=== PATIENT | female | born 1950 | race Caucasian/White ===

== ENCOUNTER 2019-02-26 08:46 | Emergency (ER) | payer MEDICARE, SELFPAY ==
[2019-02-26 09:03] VITALS: BP 147/74; PULSE 106; RESP 18; TEMP 36.7; O2SAT 97
[2019-02-26 09:04] VITALS: BMI 25.0
--- NOTE | 2019-02-26 09:08 | W.ED.FALL ---
HPI - Fall General: Chief Complaint: Fall Stated Complaint: fall/right hand pain Time Seen by Provider: 02/26/19 09:08 Source: patient Mode of arrival: ambulatory Limitations: no limitations History of Present Illness: HPI Narrative: pt states she was carrying in groceries when she tripped and fell onto her R side; complains of pain from shoulder down to my hand and R rib pain-worse with deep inhalation; no SOB; did not strike head, no LOC, no neck/back pain; has been ambulating w/o difficulty since the fall complaint: fall Onset (ago): day(s) (yesterday) Fall from: standing Fall witnessed: no Place fall occurred: home Loss of consciousness: None Prolonged down time: no Symptoms prior to fall: none Context: tripped/slipped Location of injury: chest Location of injury - extremities: Right: shoulder, arm, forearm and hand Associated symptoms-after fall: Reports no associated symptoms and chest pain (R rib pain); Denies abdominal pain, difficulty walking, headache(s), lightheadedness or neck pain Review of Systems Const: Denies: fever or chills Eyes: Denies: change in vision or blurry vision Card: Reports: chest pain (R rib pain); Denies: palpitations, irregular heart rhythm, lightheadedness, syncope, shortness of breath on exertion or shortness of breath when lying down Resp: Denies: shortness of breath, productive cough or pain on inspiration GI: Denies: abdominal pain, nausea, vomiting, heartburn/indigestion or diarrhea Musc: Reports: extremity pain (R arm/hand; no elbow pain) and joint pain (R shoulder, wrist); Denies: neck pain or back pain Skin/Breast: Denies: rash Neuro: Denies: headache, numbness in extremities, weakness in extremities, changes in sensation, lack of coordination, difficulty walking, frequent falls or dizziness PFSH ED PFSH: Statuses (acute, chronic, etc) shown below reflect problem list status as previously entered and may not be historically accurate Social History Smoking and tobacco status: never smoked Physical Exam Const: COMMON NORMALS: no apparent distress, oriented x3 and alert GENERAL APPEARANCE: cooperative HENMT: COMMON NORMALS: normocephalic, head/scalp atraumatic, external ears normal, EAC's normal, TM's normal bilaterally and external nose normal HEAD & SCALP: normal to inspection, normocephalic and atraumatic FACE & SINUS: normal facial exam NOSE: external nose normal EXTERNAL EAR: Yes external ears normal EXTERNAL AUDITORY CANAL: EAC's normal TYMPANIC MEMBRANE: TM's normal bilaterally MOUTH: oral and palatal mucosa normal THROAT: posterior oropharynx normal, tonsils normal and uvula midline Eye: COMMON NORMALS: PERRL and EOMs intact bilaterally PUPIL: Yes PERRL Neck/C-Spine: COMMON NORMALS: full ROM, no lymphadenopathy, supple and no meningeal signs Chest: CHEST: Yes localized rib tenderness with anteroposterior compression (R lateral mid ribs) Resp: COMMON NORMALS: normal respiratory effort, no retractions, no use of accessory muscles and clear to auscultation bilaterally AUSCULTATION: clear to auscultation bilaterally Cardio: COMMON NORMALS: regular rate and regular rhythm RATE: regular rate RHYTHM: regular rhythm GI: COMMON NORMALS: normal to inspection, nondistended, normoactive bowel sounds, soft to palpation, non-tender, no hepatosplenomegaly and no masses PALPATION: Yes soft and Yes no hepatosplenomegaly Back/Pelvis: COMMON NORMALS: thoracic and lumbar spine normal to inspection Extremity: RIGHT UPPER EXTREMITY: Yes shoulder joint (TTP; no dec ROM), Yes upper arm (TTP; no swelling/deformity noted), No elbow joint, Yes lower arm (TTP; mild ecchymosis noted dorsally ), Yes wrist (TTP; swelling noted; NV intact) and Yes hand & digits (swelling/ecchymosis on dorsum of hand; full ROM of digits ) Neuro: COMMON NORMALS: oriented x3 SENSORIUM/ORIENTATION: Yes alert MENINGEAL SIGNS: Yes no meningeal signs SENSORY EXAM: Yes extremities (normal ) Course Vital Signs: Vital signs: Vital Signs Temperature 98.0 F 02/26/19 09:03 Pulse Rate 98 02/26/19 10:30 Respiratory Rate 16 02/26/19 10:30 Blood Pressure 143/76 02/26/19 10:30 Pulse Oximetry 94 02/26/19 10:30 MDM - Fall Imaging Data^: R shoulder : Radiologist's impression: [address] [address] XRay Report Signed Patient: Loulou Castle MR#: [id number] : 1950 Acct:[id number] Age/Sex: 68 / F ADM Date: 02/26/19 Loc: ER Attending Dr: Ordering Physician: Leila Evans Date of Service: 02/26/19 Procedure(s): XR shoulder RT min 2V* [id number] Accession Number(s): [id number] cc: Leila Evans PROCEDURE INFORMATION: Exam: XR Right Shoulder Exam date and time: 02/26/2019 9:14 AM Age: 68 years old Clinical indication: Injury or trauma; Fall; Initial encounter; Blunt trauma (contusions or hematomas; Shoulder; Right TECHNIQUE: Imaging protocol: XR Right shoulder. Views: 2 or more views. COMPARISON: No relevant prior studies available. FINDINGS: Bones/joints: Visualized portions of the clavicle normal. Mild degenerative changes of the acromioclavicular joint. Glenohumeral joint normal Scapula normal Visualized ribs and visualized pulmonary parenchyma normal Coracoid process normal Soft tissues: Normal. XR/XR shoulder RT min 2V* 77000 IMPRESSION: Mild degenerative changes of the acromioclavicular joint. Dictated By: Dmitry Batista MD 02/26/19 0952 Signed By: Dmitry Batista MD 02/26/19 0954 R humerus: Radiologist's impression: [address] [address] XRay Report Signed Patient: Loulou Castle MR#: [id number] : 1950 Acct:[id number] Age/Sex: 68 / F ADM Date: 02/26/19 Loc: ER Attending Dr: Ordering Physician: Leila Evans Date of Service: 02/26/19 Procedure(s): [place] [address] Accession Number(s): [id number] cc: Leila Evans PROCEDURE INFORMATION: Exam: XR Right Humerus Exam date and time: 02/26/2019 9:14 AM Age: 68 years old Clinical indication: Injury or trauma; Fall; Initial encounter; Blunt trauma (contusions or hematomas; Arm, upper; Right TECHNIQUE: Imaging protocol: XR Right humerus Views: 2 or more views. COMPARISON: No relevant prior studies available. FINDINGS: Bones/joints: The humerus is grossly normal. Visualized portions of the forearm and the osseous structures about the elbow are grossly normal without joint effusion or fracture. The osseous structures constituting the shoulder girdle are also unremarkable. No periosteal response. No erosive changes. No focal osteopenia. No endosteal thinning. degenerative changes of the acromioclavicular joint. Soft tissues: Normal. XR/[place] [address] IMPRESSION: No fracture. Dictated By: Dmitry Batista MD 02/26/19 0954 Signed By: Dmitry Batista MD 02/26/19 0955 R forearm: Radiologist's impression: [address] [place] [address] XRay Report Signed Patient: Loulou Castle MR#: [id number] : 1950 Acct:[id number] Age/Sex: 68 / F ADM Date: 02/26/19 Loc: ER Attending Dr: Ordering Physician: Leila Evans Date of Service: 02/26/19 Procedure(s): XR forearm RT 2V 56742 Accession Number(s): [id number] cc: Leila Evans PROCEDURE INFORMATION: Exam: XR Right Forearm Exam date and time: 02/26/2019 9:14 AM Age: 68 years old Clinical indication: Injury or trauma; Fall; Initial encounter; Blunt trauma (contusions or hematomas; Arm, lower; Right TECHNIQUE: Imaging protocol: XR Right forearm. Views: 2 views. COMPARISON: CR ([facility], ) 02/26/2019 9:19 AM FINDINGS: Bones/joints: The osseous structures of the forearm are unremarkable. The distal ulna are unremarkable. degenerative changes scaphoid trapezium and trapezoid articulations. Severe degenerative changes first carpometacarpal joint. Subtle irregularity of the distal radius most conspicuous dorsally. Consider dedicated views of the wrist. Soft tissues: Normal. XR/XR forearm RT 2V 21771 IMPRESSION: Subtle irregularity of the distal radius most conspicuous dorsally. Consider dedicated views of the wrist. Degenerative changes as described above. Dictated By: Dmitry Batista MD 02/26/1955 Signed By: Dmitry Batista MD 02/26/19 0957 R wrist: Radiologist's impression: [address] [place] [address] XRay Report Signed Patient: Loulou Castle MR#: [id number] : 1950 Acct:[id number] Age/Sex: 68 / F ADM Date: 02/26/19 Loc: ER Attending Dr: Ordering Physician: Leila Evans Date of Service: 02/26/19 Procedure(s): XR wrist RT min 3V* 91664 Accession Number(s): [id number] cc: Leila Evans PROCEDURE INFORMATION: Exam: XR Right Wrist Exam date and time: 02/26/2019 9:14 AM Age: 68 years old Clinical indication: Injury or trauma; Fall; Initial encounter; Blunt trauma (contusions or hematomas; Wrist; Right TECHNIQUE: Imaging protocol: XR Right wrist. Views: 3 or more views. COMPARISON: No relevant prior studies available. FINDINGS: Bones/joints: Mild degenerative changes distal radial ulnar joint Chronic ulnar styloid process fracture Severe degenerative changes first carpometacarpal joint. degenerative changes scaphoid trapezium and trapezoid articulations. Mildly comminuted fracture involving the proximal aspect of the fifth metacarpal which appears to extend to the articular surface. Soft tissues: Normal. XR/XR wrist RT min 3V* 41976 IMPRESSION: Mildly comminuted fracture involving the proximal aspect of the fifth metacarpal which appears to extend to the articular surface. Irregularity of the distal radius is believed to be degenerative in nature. The pronator quadratus muscle appears unremarkable. Consider CT if indicated. Dictated By: Dmitry Batista MD 02/26/1957 Signed By: Dmitry Batista MD 02/26/19 0959 R hand: Radiologist's impression: [address] [place] [address] XRay Report Signed Patient: Loulou Castle MR#: [id number] : 1950 Acct:[id number] Age/Sex: 68 / F ADM Date: 02/26/19 Loc: ER Attending Dr: Ordering Physician: Leila Evans Date of Service: 02/26/19 Procedure(s): XR hand RT min 3V* 16941 Accession Number(s): [id number] cc: Leila Evans PROCEDURE INFORMATION: Exam: XR Right Hand Exam date and time: 02/26/2019 9:14 AM Age: 68 years old Clinical indication: Injury or trauma; Fall; Initial encounter; Blunt trauma (contusions or hematomas; Hand; Right TECHNIQUE: Imaging protocol: XR Right hand. Views: 3 or more views. COMPARISON: No relevant prior studies available. FINDINGS: Bones/joints: Degenerative changes are present in the distal interphalangeal joints and to a lesser degree the more proximal interphalangeal articulations. Mildly displaced fracture involving the proximal aspect of the fifth metacarpal extending to the articular surface. degenerative changes scaphoid trapezium and trapezoid articulations. degenerative changes first carpometacarpal joint. Soft tissues: Normal. XR/XR hand RT min 3V* 70226 IMPRESSION: Mildly displaced fracture involving the proximal aspect of the fifth metacarpal extending to the articular surface. Degenerative changes. Dictated By: Dmitry Batista MD 02/26/19 0959 Signed By: Dmitry Batista MD 02/26/19 1000 R ribs/CXR: Radiologist's impression: [place] [address] XRay Report Signed Patient: Loulou Castle MR#: [id number] : 1950 Acct:[id number] Age/Sex: 68 / F ADM Date: 02/26/19 Loc: ER Attending Dr: Ordering Physician: Leila Evans Date of Service: 02/26/19 Procedure(s): XR ribs RT mn 3V w CXR1V 85535 Accession Number(s): [id number] cc: Leila Evans PROCEDURE INFORMATION: Exam: XR Right Ribs with PA Chest, 3 Views Exam date and time: 02/26/2019 10:02 AM Age: 68 years old Clinical indication: Injury or trauma; Fall; Initial encounter; Chest wall and rib area; Blunt trauma (contusions or hematomas); Injury date: 02/26/19; Additional info: Fall/pain TECHNIQUE: Imaging protocol: XR Right ribs 3 views with PA chest. COMPARISON: CR Chest 2 views* 45692 11/07/2017 11:51 AM FINDINGS: Lungs: Unremarkable. No consolidation. Pleural space: Pleural thickening right hemithorax laterally. A rib fracture is not clearly delineated. Heart/Mediastinum: Cardiomegaly Bones/joints: See Pleural Space Finding. XR/XR ribs RT mn 3V w CXR1V 15947 IMPRESSION: Pleural thickening right hemithorax laterally. A rib fracture is not clearly delineated. Dictated By: Dmitry Batista MD 02/26/19 1013 Signed By: Dmitry Batista MD 02/26/19 1015 Discharge Plan Discharge Patient Disposition: Home, Self-Care Clinical Impression: Fall Qualifiers: Encounter type: initial encounter Qualified Code(s): W19.XXXA - Unspecified fall, initial encounter Fracture of metacarpal Qualifiers: Encounter type: initial encounter Metacarpal bone: fifth Fracture type: closed Metacarpal location: base Fracture alignment: nondisplaced Laterality: right Qualified Code(s): S62.346A - Nondisplaced fracture of base of fifth metacarpal bone, right hand, initial encounter for closed fracture Condition: Stable Prescriptions: New hydrocodone-acetaminophen 5-325 mg tablet 1 tab PO Q6H PRN (Reason: pain) Qty: 14 RF: 0 Discharge Orders: Discharge Order (Routine); Ordered 02/26/19 Ordered By: Leila Evans Referrals: Amanda Chaudhari DO [Family Provider] - Discharge Diet: Usual diet Discharge Activity: limit use of right upper extremity Activity Restrictions/Additional Instructions: Follow up with orthopedics as directed. Case management will contact you with date/time of your appointment. Stand Alone Forms: Work/Release Restrictions Discharge Date/Time: 02/26/19 10:37 Coding Level of Care Code ED Rn Physician Office for [facility] Ackerman Exam Problem Focused
--- NOTE | 2019-02-26 09:13 | XRR_ITS ---
PROCEDURE INFORMATION: Exam: XR Right Shoulder Exam date and time: 02/26/2019 9:14 AM Age: 68 years old Clinical indication: Injury or trauma; Fall; Initial encounter; Blunt trauma (contusions or hematomas; Shoulder; Right TECHNIQUE: Imaging protocol: XR Right shoulder. Views: 2 or more views. COMPARISON: No relevant prior studies available. FINDINGS: Bones/joints: Visualized portions of the clavicle normal. Mild degenerative changes of the acromioclavicular joint. Glenohumeral joint normal Scapula normal Visualized ribs and visualized pulmonary parenchyma normal Coracoid process normal Soft tissues: Normal. XR/XR shoulder RT min 2V* [id number] IMPRESSION: Mild degenerative changes of the acromioclavicular joint.
--- NOTE | 2019-02-26 09:13 | XRR_ITS ---
PROCEDURE INFORMATION: Exam: XR Right Forearm Exam date and time: 02/26/2019 9:14 AM Age: 68 years old Clinical indication: Injury or trauma; Fall; Initial encounter; Blunt trauma (contusions or hematomas; Arm, lower; Right TECHNIQUE: Imaging protocol: XR Right forearm. Views: 2 views. COMPARISON: CR ([facility], ) 02/26/2019 9:19 AM FINDINGS: Bones/joints: The osseous structures of the forearm are unremarkable. The distal ulna are unremarkable. degenerative changes scaphoid trapezium and trapezoid articulations. Severe degenerative changes first carpometacarpal joint. Subtle irregularity of the distal radius most conspicuous dorsally. Consider dedicated views of the wrist. Soft tissues: Normal. XR/XR forearm RT 2V [id number] IMPRESSION: Subtle irregularity of the distal radius most conspicuous dorsally. Consider dedicated views of the wrist. Degenerative changes as described above.
--- NOTE | 2019-02-26 09:13 | XRR_ITS ---
PROCEDURE INFORMATION: Exam: XR Right Ribs with PA Chest, 3 Views Exam date and time: 02/26/2019 10:02 AM Age: 68 years old Clinical indication: Injury or trauma; Fall; Initial encounter; Chest wall and rib area; Blunt trauma (contusions or hematomas); Injury date: 02/26/19; Additional info: Fall/pain TECHNIQUE: Imaging protocol: XR Right ribs 3 views with PA chest. COMPARISON: CR Chest 2 views* [id number] 11/07/2017 11:51 AM FINDINGS: Lungs: Unremarkable. No consolidation. Pleural space: Pleural thickening right hemithorax laterally. A rib fracture is not clearly delineated. Heart/Mediastinum: Cardiomegaly Bones/joints: See Pleural Space Finding. XR/XR ribs RT mn 3V w CXR1V 35628 IMPRESSION: Pleural thickening right hemithorax laterally. A rib fracture is not clearly delineated.
--- NOTE | 2019-02-26 09:13 | XRR_ITS ---
PROCEDURE INFORMATION: Exam: XR Right Humerus Exam date and time: 02/26/2019 9:14 AM Age: 68 years old Clinical indication: Injury or trauma; Fall; Initial encounter; Blunt trauma (contusions or hematomas; Arm, upper; Right TECHNIQUE: Imaging protocol: XR Right humerus Views: 2 or more views. COMPARISON: No relevant prior studies available. FINDINGS: Bones/joints: The humerus is grossly normal. Visualized portions of the forearm and the osseous structures about the elbow are grossly normal without joint effusion or fracture. The osseous structures constituting the shoulder girdle are also unremarkable. No periosteal response. No erosive changes. No focal osteopenia. No endosteal thinning. degenerative changes of the acromioclavicular joint. Soft tissues: Normal. XR/[place] [id number] IMPRESSION: No fracture.
--- NOTE | 2019-02-26 09:13 | XRR_ITS ---
PROCEDURE INFORMATION: Exam: XR Right Hand Exam date and time: 02/26/2019 9:14 AM Age: 68 years old Clinical indication: Injury or trauma; Fall; Initial encounter; Blunt trauma (contusions or hematomas; Hand; Right TECHNIQUE: Imaging protocol: XR Right hand. Views: 3 or more views. COMPARISON: No relevant prior studies available. FINDINGS: Bones/joints: Degenerative changes are present in the distal interphalangeal joints and to a lesser degree the more proximal interphalangeal articulations. Mildly displaced fracture involving the proximal aspect of the fifth metacarpal extending to the articular surface. degenerative changes scaphoid trapezium and trapezoid articulations. degenerative changes first carpometacarpal joint. Soft tissues: Normal. XR/XR hand RT min 3V* [id number] IMPRESSION: Mildly displaced fracture involving the proximal aspect of the fifth metacarpal extending to the articular surface. Degenerative changes.
--- NOTE | 2019-02-26 09:13 | XRR_ITS ---
PROCEDURE INFORMATION: Exam: XR Right Wrist Exam date and time: 02/26/2019 9:14 AM Age: 68 years old Clinical indication: Injury or trauma; Fall; Initial encounter; Blunt trauma (contusions or hematomas; Wrist; Right TECHNIQUE: Imaging protocol: XR Right wrist. Views: 3 or more views. COMPARISON: No relevant prior studies available. FINDINGS: Bones/joints: Mild degenerative changes distal radial ulnar joint Chronic ulnar styloid process fracture Severe degenerative changes first carpometacarpal joint. degenerative changes scaphoid trapezium and trapezoid articulations. Mildly comminuted fracture involving the proximal aspect of the fifth metacarpal which appears to extend to the articular surface. Soft tissues: Normal. XR/XR wrist RT min 3V* [id number] IMPRESSION: Mildly comminuted fracture involving the proximal aspect of the fifth metacarpal which appears to extend to the articular surface. Irregularity of the distal radius is believed to be degenerative in nature. The pronator quadratus muscle appears unremarkable. Consider CT if indicated.
--- NOTE | 2019-02-26 09:26 | PC.NURSE ---
Patient states she had a fall that occurred yesterday outside of her apartment, patient verbalized that she fell up her stairs. Bruising and swelling noted to the right hand, with decreased ability to move fingers with normal range of motion. Patient also c/o pain in the right shoulder and discomfort on the right lateral ribs just near the breast area.
[2019-02-26 09:51] VITALS: RESP 18
[2019-02-26] MEDS: morphine 4 mg/mL SDV 1 mL IM (09:51)
[2019-02-26 09:54] VITALS: BP 159/95; PULSE 107; RESP 18; O2SAT 96
--- NOTE | 2019-02-26 10:28 | PC.NURSE ---
Ulnar gutter splint placed on the right extremity. Patient tolerated well. Distal cap refill is intact and WNL, sensation WNL.
[2019-02-26 10:30] VITALS: BP 143/76; PULSE 98; RESP 16; O2SAT 94
--- NOTE | 2019-02-27 10:37 | DCPLANNER ---
senior insight manager had message that patient needed to follow up at ortho. senior insight manager called the ortho clinic, spoke with Pat, gave clinic patients information. senior insight manager was told that patients information would be printed and reviewed. Clinic will call spring encaser and patient with appointment information.
--- NOTE | 2019-03-07 13:15 | DCPLANNER ---
A follow up appointment was scheduled for 03.01.[address] Thakur, patient did attend the appointment.
== END 2019-02-26 10:37 | disposition home or self-care (01) ==
LOC: ER 10:38
PROVIDERS: Emergency Provider Physician Assistant; Family Provider Family Medicine
DX: S62.346A Nondisplaced fracture of base of fifth metacarpal bone, right hand, initial encounter for closed fracture (principal); W01.0XXA Fall on same level from slipping, tripping and stumbling without subsequent striking against object, initial encounter; Y92.009 Unspecified place in unspecified non-institutional (private) residence as the place of occurrence of the external cause
CPT/HCPCS: 71101; 73030; 73060; 73090; 73110; 73130; 96372; 99282; 99284; J2270

== ENCOUNTER → 2019-03-01 12:39 | Outpatient (BNVA) | payer MEDICARE, SELFPAY | PROVIDERS: Family Provider Family Medicine; PCP Family Medicine; Referring Provider Physician Assistant; Visit Provider Specialist | DX: M25.521 Pain in right elbow (principal) | CPT/HCPCS: 73080 ==

== ENCOUNTER 2019-03-01 14:55 | Outpatient (CLI) | payer MEDICARE, SELFPAY | END 2019-03-01 14:56 | disposition home or self-care (01) | LOC: SPT 14:55 | PROVIDERS: Family Provider Family Medicine; PCP Family Medicine; Visit Provider Specialist | DX: S62.346D Nondisplaced fracture of base of fifth metacarpal bone, right hand, subsequent encounter for fracture with routine healing (principal); X58.XXXD Exposure to other specified factors, subsequent encounter | CPT/HCPCS: L3984 ==

== ENCOUNTER → 2019-03-21 14:37 | Outpatient (BNVA) | payer MEDICARE, SELFPAY | PROVIDERS: Family Provider Family Medicine; PCP Family Medicine; Visit Provider Specialist | DX: S62.346D Nondisplaced fracture of base of fifth metacarpal bone, right hand, subsequent encounter for fracture with routine healing (principal); X58.XXXD Exposure to other specified factors, subsequent encounter; S40.021A Contusion of right upper arm, initial encounter; X58.XXXA Exposure to other specified factors, initial encounter | CPT/HCPCS: 73130 ==

== ENCOUNTER → 2019-04-16 13:22 | Outpatient (BNVA) | payer MEDICARE, SELFPAY | PROVIDERS: Family Provider Family Medicine; PCP Family Medicine; Visit Provider Specialist | DX: S62.346A Nondisplaced fracture of base of fifth metacarpal bone, right hand, initial encounter for closed fracture (principal); X58.XXXA Exposure to other specified factors, initial encounter | CPT/HCPCS: 73130 ==

== ENCOUNTER 2020-05-02 10:22 | Emergency (ER) | payer MEDICARE, SELFPAY ==
[2020-05-02 10:28] VITALS: BP 194/91; PULSE 96; RESP 18; TEMP 36.8; O2SAT 96; BMI 29.2
[2020-05-02 10:41] VITALS: BP 194/91; PULSE 90; RESP 28; O2SAT 99
[2020-05-02 10:42] VITALS: PULSE 80
--- NOTE | 2020-05-02 10:45 | XR_ITS ---
WS: [id number] Right arm and humerus, 2 views, AP and lateral views, 05/02/2020 Clinical Data: pain after fall Comparison: Right arm and humerus, 02/26/2019. Findings: There is an anterior subcoracoid dislocation of the right humeral head. The humeral shaft is intact. The visualized right elbow shows no abnormalities. There is extrapleural thickening of the right uppe r pleura unchanged. XR/[place] [id number] Impression: Anterior subcoracoid dislocation of the right humeral head.
--- NOTE | 2020-05-02 10:47 | ED_ITS ---
HPI - Extremity Problem General: Chief complaint: Extremity Injury, Upper Stated complaint: fall/ Rt arm Time Seen by Provider: 05/02/20 10:23 History of Present Illness: HPI Narrative: 69 year-old female arrives via private vehicle she was seen days ago at [facility] and had x-rays of her shoulder after a fall. She continued to have worsening pain. She states last night she was manipulating her right arm and was trying to move it above the level of her shoulder and felt a popping sensation. Now she has increased pain unable to AB duct the arm essentially very little to no motion at that right shoulder now at all. Complaint: joint pain (Right shoulder) Onset (ago): day(s) Pain Consistency: constant Location: right and upper extremity (Shoulder) Quality: aching Radiation: distal Relieving factors: immobilization Exacerbating factors: range of motion and palpation Associated symptoms: Deny arthralgias, chest pain, fever(s), myalgias, rash or short of breath Review of Systems Const: Denies: fever(s) ENMT: Denies: throat pain, ear or mastoid pain, nasal discharge or nasal congestion Card: Denies: chest pain Resp: Denies: dyspnea, productive cough or non-productive cough GI: Denies: abdominal pain, nausea, vomiting, hematemesis, coffee ground emesis, diarrhea, constipation, bloating, hematochezia or melena : Denies: flank pain, difficulty voiding, dysuria, urinary frequency or urinary urgency Musc: Reports: joint pain Skin/Breast: Denies: rash PFSH ED PFSH: Medical History (Updated 05/02/20 @ 13:20 by Jesus Frias DO) Nondisp fx base fifth metacarpal bone right hand w/routine heal Social History Smoking and tobacco status: never smoked Physical Exam Const: COMMON NORMALS: no acute distress GENERAL APPEARANCE: cooperative and comfortable ORIENTATION/CONSCIOUSNESS: Yes awake, Yes oriented to person, Yes oriented to place and Yes oriented to time HENMT: COMMON NORMALS: normocephalic and atraumatic HEAD & SCALP: normocephalic and atraumatic Eye: COMMON NORMALS: Equal, round and reactive pupils present, EOMs intact bilaterally, conjunctivae normal and no scleral icterus CONJUNCTIVA: Yes conjunctivae normal PUPIL: Yes Equal, round and reactive pupils present Neck/C-Spine: COMMON NORMALS: full ROM, no lymphadenopathy, supple and no JVD Resp: COMMON NORMALS: normal respiratory effort, No retractions, No use of accessory muscles and clear to auscultation bilaterally AUSCULTATION: clear to auscultation bilaterally Cardio: COMMON NORMALS: no JVD, regular rate, regular rhythm and No murmurs present (Cardio) RATE: regular rate RHYTHM: regular rhythm GI: COMMON NORMALS: Soft to palpation and No hepatosplenomegaly present AUSCULTATION: Yes normoactive bowel sounds PALPATION: Yes Soft to palpation, No Tenderness to palpation present (GI), No Guarding due to palpation present (GI) and Yes No hepatosplenomegaly present Neuro: SENSORIUM/ORIENTATION: Yes oriented to person, Yes oriented to place and Yes oriented to time Skin: COMMON NORMALS: no rashes or lesions noted GENERAL SKIN EXAM: no rashes or lesions noted Procedures Orthopedic Joint Reduction Joint #1: Time Out Performed: Yes Side: right Joint Reduction Location: shoulder Analgesia: procedural sedation Shoulder Technique Used (if applicable): traction/counter-traction Technique used: traction/counter-traction Post-reduction neuro exam: intact Post-reduction vascular: intact Post Reduction X-Ray Obtained: Yes Post Reduction X-Ray Results: reduced Splint Applied: No Additional Comments: Joint reduced with 10 of etomidate. Was actually initially reduced quite easily and examining to confirm it was in place felt its dislocated again and then easily relocated. Patient placed on immobilizer and x- ray done to confirm reduction. Course Vital Signs: Vital signs: Vital Signs Temperature 98.2 F 05/02/20 10:28 Pulse Rate 84 05/02/20 11:20 Respiratory Rate 24 H 05/02/20 11:20 Blood Pressure 163/103 05/02/20 11:20 Pulse Oximetry 96 05/02/20 11:20 MDM - Extremity (Nontraumatic) MDM Narrative: Medical decision making narrative: Discharge collar shoulder mobilizer refer to orthopedics for further evaluation. Discharge Plan Discharge Patient Disposition: Home Clinical Impression: Recurrent anterior dislocation of right shoulder Condition: Stable Prescriptions: No Action (DME) Fast form ulnar gutter splint Qty: 1 RF: 0 hydrocodone-acetaminophen 5-325 mg tablet 1 tab PO Q6H PRN (Reason: pain) Qty: 14 RF: 0 atorvastatin 20 mg tablet 20 mg PO DAILY@0800 RF: 0 albuterol sulfate 2.5 mg /3 mL (0.083 %) solution for nebulization 2.5 mg continuous nebulization Q6H PRN (Reason: Shortness Of Breath) RF: 0 albuterol sulfate 90 mcg/actuation HFA aerosol inhaler 2 puff INHALATION Q6H PRN (Reason: Shortness Of Breath) RF: 0 Discharge Orders: Discharge ED (Routine); Ordered 05/02/20 Ordered By: Jesus Frias Referrals: Amanda Chaudhari, [Primary Care Provider] - Discharge Diet: Usual diet Discharge Activity: Limit activity as instructed Patient Instructions: Opioid Safety Activity Restrictions/Additional Instructions: No use of the right arm. Remain in the shoulder immobilizer until released by orthopedics. Case management will call with an appointment for orthopedics. Coding Level of Care Code ED Refuse Laborer for Jean Pierre Fwtommie Exam Comprehensive
--- NOTE | 2020-05-02 10:58 | PC.NURSE ---
out to XR
[2020-05-02] MEDS: HYDROcodone-acetaminophen 5-325 mg Tablet 1 TAB PO (11:12)
[2020-05-02 11:20] VITALS: BP 163/103; PULSE 84; RESP 24; O2SAT 96
--- NOTE | 2020-05-02 11:23 | XR_ITS ---
WS: [id number] Right shoulder, 3 views, 05/02/2020 Clinical Data: pain Comparison: None. Findings: There is an anterior subcoracoid dislocation. The AC joint is intact. No fractures are present. The right clavicle, right scapula and right ribs are unremarkable. The soft tissue is normal. XR/XR shoulder RT min 2V* [id number] Impression: Anterior subcoracoid dislocation of right humeral head.
--- NOTE | 2020-05-02 13:02 | XR_ITS ---
WS: [id number] Right shoulder, AP view, 05/02/2020 Clinical Data: POST REDUCTION Comparison: None. Findings: The anterior subcoracoid dislocation has been reduced. XR/XR shoulder RT 1V [id number] Impression: Reduction of right shoulder anterior subcoracoid dislocation.
[2020-05-02] MEDS: ondansetron 2 mg/ML SDV 2 mL 4 MG IVP (13:05)
[2020-05-02 13:21] VITALS: BP 165/90; PULSE 81; RESP 18; O2SAT 98
[2020-05-02 13:59] VITALS: BP 165/90; PULSE 81; RESP 18; O2SAT 98
--- NOTE | 2020-05-02 14:25 | DCPLANNER ---
edi manager received message to schedule follow up appointment with ortho for R shoulder dislocation and MRI of right shoulder status post anterior dislocation. edi manager called ortho clinic and spoke to Alexandria. Alexandria took down information she needed to schedule appt and she will call patient with appt information.
--- NOTE | 2020-05-07 12:25 | DCPLANNER ---
Patient has a follow up appointment scheduled for April at 10:[address] Thakur at ortho. Clinic will call patient with appointment information.
--- NOTE | 2020-05-14 15:32 | DCPLANNER ---
Patient had a follow up appointment scheduled for 05.08.[address] Thakur at [facility] - patient did attend appointment.
== END 2020-05-02 14:00 | disposition home or self-care (01) ==
PROVIDERS: Emergency Provider Family Medicine; PCP Family Medicine
DX: S43.084A Other dislocation of right shoulder joint, initial encounter (principal); W19.XXXA Unspecified fall, initial encounter
CPT/HCPCS: 23650; 73020; 73030; 73060; 96374; 99284; J2405; J3490

== ENCOUNTER → 2020-05-08 09:58 | Outpatient (BNVA) | payer MEDICARE, SELFPAY | PROVIDERS: PCP Family Medicine; Referring Provider Family Medicine; Visit Provider Specialist | DX: S43.004A Unspecified dislocation of right shoulder joint, initial encounter (principal); X58.XXXA Exposure to other specified factors, initial encounter | CPT/HCPCS: 73030 ==

== ENCOUNTER → 2020-05-19 11:37 | Outpatient (BNVA) | payer MEDICARE, SELFPAY | PROVIDERS: PCP Family Medicine; Visit Provider Specialist | DX: S43.004A Unspecified dislocation of right shoulder joint, initial encounter (principal); X58.XXXA Exposure to other specified factors, initial encounter | CPT/HCPCS: 73030 ==

== ENCOUNTER → 2020-10-06 10:54 | Outpatient (BNVA) | payer MEDICARE, SELFPAY | PROVIDERS: PCP Family Medicine; Visit Provider Nurse Practitioner Family | DX: Z20.822 Contact with and (suspected) exposure to COVID-19 (principal); J06.9 Acute upper respiratory infection, unspecified; Z20.828 Contact with and (suspected) exposure to other viral communicable diseases | CPT/HCPCS: 87635 ==

== ENCOUNTER 2020-10-22 09:25 | Outpatient (CLI) | payer MEDICARE, SELFPAY ==
--- NOTE | 2020-10-22 09:39 | XR_ITS ---
WS: [id number] Chest 2 views, 10/22/2020 Clinical Data: MODERATE PERSISTENT ASTHMA WITH ACUTE EXACERBATION Comparison: PA chest, 02/26/2019. Findings: No nodules, masses or effusions are seen. The heart is slightly enlarged. The pulmonary vas cularity is not increased. No pneumonia or pneumothorax is seen. The aortic arch and descending aorta are tortuous. There is right pleural thickening unchanged. There is an old left seventh rib fracture . There are surgical clips in the left supraclavicular region. XR/XR chest 2V* [id number] Impression: Atherosclerosis and minimal cardiomegaly.
== END 2020-10-22 09:26 | disposition home or self-care (01) ==
PROVIDERS: PCP Family Medicine; Visit Provider Registered Nurse
DX: J45.41 Moderate persistent asthma with (acute) exacerbation (principal); I70.90 Unspecified atherosclerosis
CPT/HCPCS: 71046

== ENCOUNTER 2020-12-02 13:41 | Outpatient (CLI) | payer MEDICARE, SELFPAY ==
--- NOTE | 2020-12-02 13:46 | USCV_ITS ---
Loulou Castle Age: 70 Gender: F : 1950 Exam Date: 12/02/2020 14:18 Ordering Phys: Dara Causey Technologist: Abigail Torres Exam Location: [facility] [place] Indication: CARDIOMEGALY/AORTIC ATHEROS/SOB BP: 140 / 80 HR: 105 Rhythm: Sinus Technical Quality: Suboptimal MEASUREMENTS (Male / Female) Normal Values 2D ECHO LV Diastolic Diameter PLAX 3.7 cm 4.2 - 5.9 / 3.9 - 5.3 cm LV Systolic Diameter PLAX 2.5 cm IVS Diastolic Thickness 1.3 cm 0.6 - 1.0 / 0.6 - 0.9 cm IVS Systolic Thickness 2.0 cm LVPW Diastolic Thickness 2.2 cm 0.6 - 1.0 / 0.6 - 0.9 cm LVPW Systolic Thickness 2.3 cm LVOT Diameter 2.0 cm LV Ejection Fraction 2D Teich 59.6 % LV Ejection Fraction MOD 2C 68.4 % LV Ejection Fraction 2C AL 68.4 % LA Diameter 2.8 cm LA Width 3.1 cm LA Height 3.4 cm RA Width 2.6 cm RA Height 3.0 cm Aorta at Sinotubular Diameter 2.8 cm M-MODE Aortic Annulus Diameter 2.6 cm LA Ao Ratio MM 1.1 MV E Point Septal Separation 1.1 cm DOPPLER AV Peak Velocity 158.7 cm/s LVOT Peak Velocity 90.0 cm/s AV Area Cont Eq vti 1.9 cm squared AV Area Cont Eq pk 1.8 cm squared MV Area PHT 3.7 cm squared Mitral E to A Ratio 0.6 MV E' Velocity 39.0 cm/s Mitral E to MV E' Ratio 15.3 Mitral E to LV E' Lateral Ratio 12.9 Mitral E to LV E' Septal Ratio 19.5 Right Atrial Pressure 3.0 mmHg PV Peak Velocity 89.0 cm/s RV Acceleration Time 0.1 s RV Ejection Time 0.2 s RV AcT/ET 0.5 FINDINGS Left Ventricle Normal left ventricular cavity size. Normal left ventricular systolic function. No regional wall motion abnormalities. Left ventricular ejection fraction is estimated at 59 %. Grade I/IV diastolic dysfunction (abnormal relaxation filling pattern), normal to mildly elevated filling pressures. Right Ventricle The right ventricle is normal in size and function. Right Atrium The right atrium is normal in size. Left Atrium The left atrium is normal in size. Mitral Valve Structurally normal mitral valve without significant stenosis or prolapse. There is no mitral regurgitation. Aortic Valve Moderate aortic valve calcification. No aortic valve stenosis. Mild aortic valve regurgitation. Tricuspid Valve Structurally normal tricuspid valve without significant stenosis or regurgitation. Pulmonary artery systolic pressure is normal. Pulmonic Valve Structurally normal pulmonic valve without significant stenosis. There is no pulmonic regurgitation. Pericardium Normal pericardium without effusion. Aorta Normal ascending aorta dimension. CONCLUSIONS 1-Normal left ventricular cavity size. Normal left ventricular systolic function. No regional wall motion abnormalities. Left ventricular ejection fraction is estimated at 59 %. Grade I/IV diastolic dysfunction (abnormal relaxation filling pattern), normal to mildly elevated filling pressures. 2-Moderate aortic valve calcification. No aortic valve stenosis. Mild aortic valve regurgitation. 3-There is no pericardial effusion. 4-Pulmonary artery systolic pressure is within normal limits. 5-Right atrial pressure is around 5 mm of mercury. 6-There are no prior echocardiogram studies to compare. Horacio Aceves MD (Electronically Signed) Final Date: 08 December 2020 21:14 S
== END 2020-12-02 13:42 | disposition home or self-care (01) ==
LOC: US 13:44
PROVIDERS: PCP Family Medicine; Visit Provider Registered Nurse
DX: I51.7 Cardiomegaly (principal); R06.02 Shortness of breath; I70.0 Atherosclerosis of aorta; I35.1 Nonrheumatic aortic (valve) insufficiency
CPT/HCPCS: 93306

== ENCOUNTER → 2021-02-06 10:06 | Outpatient (BNVA) | payer MEDICARE, SELFPAY | PROVIDERS: PCP Family Medicine; Visit Provider Nurse Practitioner Family | DX: Z01.812 Encounter for preprocedural laboratory examination (principal); Z20.822 Contact with and (suspected) exposure to COVID-19 | CPT/HCPCS: 87635 ==

== ENCOUNTER 2021-02-12 08:29 | Outpatient (CLI) | payer MEDICARE, SELFPAY ==
[2021-02-12 09:23] VITALS: BMI 28.1
--- NOTE | 2021-02-12 09:24 | ECG_ITS ---
[facility] Test Date: 2021-02-12 Pat Name: Loulou Castle Department: Room: Gender: Female Shoe Parts Molder: May Hernandez : 1950 Requested By: Aure Parisi Order Number: [id number] Cavanaugh MD: STEVIE CONNELLY Interpretive Statements NAME OF STUDY: LEXISCAN SESTAMIBI STRESS TEST INDICATION: Shortness of Breath, NOTE: Please note that this is the electrocardiogram portion of the Lexiscan/Sestamibi stress test. The perfusion scan will be documented separately. DATA: Baseline heart rate was 88 beats per minute. Baseline blood pressure was 157/80 millimeters of mercury. Target heart rate was 149. Maximum heart rate achieved was 114. which was 76 % of the predicted target heart rate. Maximum blood pressure was 158/95 millimeters of mercury. The reason for ending the test was completion of the protocol. The patient did not experience any symptoms. ELECTROCARDIOGRAM: BASELINE: Sinus rhythm. Normal axis. Otherwise, no ST-T changes suggestive of ischemia noted. No arrhythmia noted. EXERCISE: After Lexiscan injection, no ST-T changes suggestive of ischemic noted. No arrhythmia noted. 1. EKG not suggestive of ischemia 2. Lexiscan injection unremarkable. 3. Perfusion scan will be documented separately. Electronically Signed On 03-01-2021 14:43:51 PROFESSOR OF EXERCISE SCIENCE by STEVIE CONNELLY [id number]
--- NOTE | 2021-02-12 09:24 | NMCV_ITS ---
NM elsy perf SPECT r/s* [id number] Loulou Castle Age: 70 Gender: F : 1950 Exam Date: 02/12/2021 09:24 Ordering Phys: Aure Parisi Technologist: DEANDRE Kenny Exam Location: [facility] Indications: SHORTNESS OF BREATH STRESS TEST [facility] IMAGE PROTOCOL Rest/Stress 1 Lexiscan Day Radiopharmaceutical Dose (mCi) Administration Site Administered by Rest: Tc-99m 10.7 IV DEANDRE Kenny Sestamibi Stress:Tc-99m 32.9 IV DEANDRE Blount Sestamibi Rest: 12-Feb-2021 60 Discovery 630 Stress: 12-Feb-2021 30 Discovery 630 0.4mg Lexiscan. Images obtained in supine and prone position. SPECT RESULTS Technical Quality: Excellent Raw Data Analysis: Normal Image Corrections: No attenuation or motion correction applied Summed Stress Score: 1 Summed Rest Score: 0 Summed Difference Score: 1 PERFUSION FINDINGS SPECT images demonstrate homogeneous tracer distribution throughout the myocardium. FUNCTIONAL RESULTS (calculated via Gated SPECT) Stress Image LV EF (%): 86 Stress EDV (mL):36 TID: 0.76 Stress ESV (mL):5 FUNCTIONAL FINDINGS: There is normal left ventricular systolic function. IMPRESSIONS 1. Normal myocardial perfusion imaging with no evidence of ischemia 2. LV systolic function is normal Jose J Rivera MD (Electronically Signed) Final Date: 12 February 2021 15:28 S
[2021-02-12] MEDS: regadenoson 0.4 Mg/5 ml Syringe IVP (11:01)
--- NOTE | 2021-02-12 12:53 | PFTS_ITS ---
Date of Study:02/12/21 Date of Dictation: MECHANICS: Forced vital capacity (FVC) is reduced. Forced expiratory volume in one second (FEV1) is reduced. FEV1/FVC is normal. FLOW VOLUME LOOP: Normal. LUNG VOLUMES: Not measured. DIFFUSING CAPACITY FOR CARBON MONOXIDE: Not measured. INTERPRETATION: The postbronchodilator spirometry is consistent with moderate restriction. There is no significant postbronchodilator response. MTDD
== END 2021-02-12 08:30 | disposition home or self-care (01) ==
LOC: CDL 08:31
PROVIDERS: PCP Family Medicine; Visit Provider Nurse Practitioner Family
DX: R06.02 Shortness of breath (principal)
CPT/HCPCS: 78452; 94060; A9500; J2785

== ENCOUNTER → 2021-11-17 08:38 | Outpatient (BNVA) | payer MEDICARE, SELFPAY | PROVIDERS: PCP Family Medicine; Visit Provider Podiatrist Foot & Ankle Surgery | DX: S82.401A Unspecified fracture of shaft of right fibula, initial encounter for closed fracture (principal); X58.XXXA Exposure to other specified factors, initial encounter; R60.9 Edema, unspecified | CPT/HCPCS: 73610; 99204 ==

== ENCOUNTER 2021-11-17 10:06 | Outpatient (CLI) | payer MEDICARE, MEDICAID, SELFPAY | END 2021-11-17 10:07 | disposition home or self-care (01) | LOC: SPT 10:07 | PROVIDERS: PCP Family Medicine; Visit Provider Podiatrist Foot & Ankle Surgery | DX: Z46.89 Encounter for fitting and adjustment of other specified devices (principal); S99.911D Unspecified injury of right ankle, subsequent encounter; X58.XXXD Exposure to other specified factors, subsequent encounter | CPT/HCPCS: 97760; L4361 ==

== ENCOUNTER → 2021-12-03 08:33 | Outpatient (BNVA) | payer MEDICARE, SELFPAY | PROVIDERS: PCP Family Medicine; Visit Provider Podiatrist Foot & Ankle Surgery | DX: S82.401A Unspecified fracture of shaft of right fibula, initial encounter for closed fracture (principal); X58.XXXA Exposure to other specified factors, initial encounter; R60.9 Edema, unspecified | CPT/HCPCS: 73610; 99213 ==

== ENCOUNTER → 2021-12-07 14:06 | Outpatient (BNVA) | payer MEDICARE, SELFPAY | PROVIDERS: PCP Family Medicine; Visit Provider Internal Medicine Cardiovascular Disease | DX: I47.1 Supraventricular tachycardia (principal); I50.9 Heart failure, unspecified; R06.02 Shortness of breath; R60.9 Edema, unspecified | CPT/HCPCS: 80048; 83880; 93005; 99214 ==

== ENCOUNTER → 2021-12-21 08:58 | Outpatient (BNVA) | payer MEDICARE, SELFPAY | PROVIDERS: PCP Family Medicine; Visit Provider Podiatrist Foot & Ankle Surgery | DX: S82.401A Unspecified fracture of shaft of right fibula, initial encounter for closed fracture (principal); X58.XXXA Exposure to other specified factors, initial encounter; R60.9 Edema, unspecified | CPT/HCPCS: 73610; 99213 ==

== ENCOUNTER 2022-01-05 06:00 | Outpatient (CLI) | payer MEDICARE, MEDICAID, SELFPAY | END 2022-01-05 06:01 | disposition home or self-care (01) | LOC: SPT 01-16 10:31 | PROVIDERS: PCP Family Medicine; Visit Provider Podiatrist Foot & Ankle Surgery | DX: Z46.89 Encounter for fitting and adjustment of other specified devices (principal); M25.571 Pain in right ankle and joints of right foot; S82.401A Unspecified fracture of shaft of right fibula, initial encounter for closed fracture; X58.XXXA Exposure to other specified factors, initial encounter; R60.9 Edema, unspecified | CPT/HCPCS: 99213; L1902 ==

== ENCOUNTER → 2022-01-05 13:34 | Outpatient (BNVA) | payer MEDICARE, MEDICAID, SELFPAY | PROVIDERS: PCP Family Medicine; Visit Provider Podiatrist Foot & Ankle Surgery | DX: S82.401A Unspecified fracture of shaft of right fibula, initial encounter for closed fracture (principal); X58.XXXA Exposure to other specified factors, initial encounter; R60.9 Edema, unspecified | CPT/HCPCS: 73610 ==

== ENCOUNTER → 2022-02-05 11:02 | Outpatient (BNVA) | payer MEDICARE, MEDICAID, SELFPAY | PROVIDERS: PCP Family Medicine; Visit Provider Podiatrist Foot & Ankle Surgery | DX: S82.401A Unspecified fracture of shaft of right fibula, initial encounter for closed fracture (principal); M25.571 Pain in right ankle and joints of right foot; X58.XXXA Exposure to other specified factors, initial encounter | CPT/HCPCS: 73610; 99213 ==

== ENCOUNTER → 2022-06-14 15:07 | Outpatient (BNVA) | payer MEDICARE, SELFPAY | PROVIDERS: PCP Family Medicine; Visit Provider Internal Medicine Cardiovascular Disease | DX: I47.1 Supraventricular tachycardia (principal); I50.9 Heart failure, unspecified; E78.5 Hyperlipidemia, unspecified | CPT/HCPCS: 99214 ==

== ENCOUNTER → 2023-03-21 14:44 | Outpatient (BNVA) | payer MEDICARE, SELFPAY | PROVIDERS: PCP Family Medicine; Visit Provider Internal Medicine Cardiovascular Disease | DX: I50.9 Heart failure, unspecified (principal); R06.02 Shortness of breath; E78.5 Hyperlipidemia, unspecified; I47.19 Other supraventricular tachycardia | CPT/HCPCS: 99214 ==

== ENCOUNTER 2023-03-28 11:27 | Outpatient (CLI) | payer MEDICARE, SELFPAY ==
--- NOTE | 2023-03-28 12:15 | USCV_ITS ---
Loulou Castle Age: 72 Gender: F : 1950 Exam Date: 03/28/2023 11:49 Ordering Phys: Bhumi aHgan MD ([email or web address]) Technologist: CT Exam Location: [facility] [place] Indication: sob BP: 146 / HR: 101 Rhythm: Sinus Technical Quality: Adequate MEASUREMENTS (Male / Female) Normal Values 2D ECHO LVOT Diameter 2.0 cm LV Ejection Fraction MOD 2C 55.9 % LV Ejection Fraction 2C AL 55.4 % LA Diameter 3.3 cm Aorta at Sinotubular Diameter 2.8 cm IVC Diameter 1.2 cm M-MODE Aortic Annulus Diameter 3.1 cm LA Ao Ratio MM 1.1 MV E Point Septal Separation 1.0 cm DOPPLER AV Peak Velocity 182.0 cm/s LVOT Peak Velocity 94.0 cm/s AV Area Cont Eq vti 2.1 cm squared AV Area Cont Eq pk 1.7 cm squared MV E' Velocity 5.0 cm/s TR Peak Velocity 46.0 cm/s TR Peak Gradient 0.8 mmHg TV Peak E Velocity 61.0 cm/s Right Atrial Pressure 3.0 mmHg Pulmonary Artery Systolic Pressu 3.8 mmHg PV Peak Velocity 84.0 cm/s FINDINGS Left Ventricle Left ventricle is normal in size. LV systolic function is normal with EF of 50 to 55%. No regional wall motion abnormalities are seen. Grade 1 diastolic dysfunction. Right Ventricle Grossly normal. Right Atrium Normal in size Left Atrium Normal in size Mitral Valve Mitral valve is thickened. Trace mitral regurgitation. Aortic Valve Aortic valve is thickened. No significant stenosis. Mild aortic regurgitation. Tricuspid Valve Mild tricuspid regurgitation. Insufficient TR jet to calculate RVSP. Pulmonic Valve Not well-visualized. Mild pulmonic regurgitation. Pericardium Normal Aorta Normal in size IVC Appears to be normal CONCLUSIONS Obesity function is normal with EF of 50 to 55%. Grade 1 diastolic dysfunction Trace mitral regurgitation Mild aortic regurgitation Mild tricuspid regurgitation Mild pulmonic regurgitation Compared to prior echocardiogram from 2020, no significant changes are seen. Jose J Rivera MD (Electronically Signed) Final Date: 03 April 2023 21:20 S
== END 2023-03-28 11:28 | disposition home or self-care (01) ==
LOC: RAD 11:38
PROVIDERS: PCP Family Medicine; Visit Provider Internal Medicine Cardiovascular Disease
DX: I08.8 Other rheumatic multiple valve diseases (principal)
CPT/HCPCS: 93306

== ENCOUNTER → 2023-09-22 09:12 | Outpatient (BNVA) | payer MEDICARE, SELFPAY | PROVIDERS: PCP Family Medicine; Visit Provider Nurse Practitioner Family | DX: I50.9 Heart failure, unspecified (principal) | CPT/HCPCS: 99214 ==

== ENCOUNTER → 2023-11-08 09:25 | Outpatient (BNVA) | payer MEDICARE, SELFPAY | PROVIDERS: PCP Family Medicine; Visit Provider Nurse Practitioner Family | DX: L57.0 Actinic keratosis (principal); L82.0 Inflamed seborrheic keratosis; D69.2 Other nonthrombocytopenic purpura; D22.5 Melanocytic nevi of trunk; Z85.828 Personal history of other malignant neoplasm of skin | CPT/HCPCS: 17000; 17110; 99203 ==

== ENCOUNTER 2023-11-21 08:00 | Outpatient (CLI) | payer MEDICARE, SELFPAY ==
--- NOTE | 2023-11-21 08:15 | ECG_ITS ---
[facility] Test Date: 2023-11-21 Pat Name: Loulou Castle Department: Room: Gender: Female Dinkey Press Operator: : 1950 Requested By: Aure Parisi Order Number: [id number] Cavanaugh MD: Jose J Rivera M.D. Interpretive Statements EXERCISE STRESS TEST EXERCISE DATA: The patient was exercised by Intesh protocol. Baseline heart rate was 88 beats per minute. Baseline blood pressure was 151/83 millimeters of mercury. Maximal predicted heart rate was 146 beats per minute. Maximum heart rate achieved was 145 which was 99% of the maximum predicted heart rate. Maximum blood pressure was 157/66 millimeters of mercury. Total exercise time was6 minutes Maximum METs achieved was 7 The reason for ending the test was Maximal effort achieved. The patient complained of Shortness of breath during the stress test, which then resolved at the end of the test. ELECTROCARDIOGRAM: BASELINE: Showed sinus rhythm, normal axis, no significant ST-T changes at the baseline noted. [] EXERCISE: At the peak exercise level, [] 1mm ST depressions in leads V4-6 RECOVERY: During the recovery period, heart rate dropped appropriately. No significant ST-T changes in the recovery suggestive of ischemia noted. [] CONCLUSION: 1. Exercise capacity is fair. 2. Heart rate response was appropriate 3. Blood pressure response was appropriate 4. Symptoms not suggestive of ischemia. 5. Electrocardiogram portion of the stress test has non-diagnostic ST T wave changes. 6. Nuclear scan will be documented separately. Electronically Signed On 12-02-2023 19:28:11 CDT by Jose J Rivera M.D. [id number]
--- NOTE | 2023-11-21 08:16 | NMCV_ITS ---
NM elsy perf SPECT r/s* [id number] Loulou Castle Age: 73 Gender: F : 1950 Exam Date: 11/21/2023 08:16 Ordering Phys: Aure Parisi Technologist: DEANDRE Null Exam Location: [facility] Indications: cp STRESS TEST Please see separate stress test report in [facility] for full findings IMAGE PROTOCOL Rest/Stress 1 Exercise Day Radiopharmaceutical Dose (mCi) Administration Site Administered by Rest: Tc-99m 10.9 IV Laya Duggan, LINK WIRE FABRIC MACHINE OPERATOR Sestamibi Stress:Tc-99m 32.2 IV Laya Duggan, LINK WIRE FABRIC MACHINE OPERATOR Sestamibi Rest: 21-Nov-2023 60 Discovery 630 Stress: 21-Nov-2023 15 Discovery 630 Radiopharmaceutical was injected at 91 % maximum heart rate. SPECT RESULTS Technical Quality: Good Raw Data Analysis: Normal Image Corrections: No attenuation or motion correction applied Summed Stress Score: 0 Summed Rest Score: 0 Summed Difference Score: 0 PERFUSION FINDINGS SPECT images demonstrate homogeneous tracer distribution throughout the myocardium. FUNCTIONAL RESULTS (calculated via Gated SPECT) Stress Image LV EF (%): 84 Stress EDV (mL):32 TID: 0.79 Stress ESV (mL):5 FUNCTIONAL FINDINGS: There is normal left ventricular systolic function. IMPRESSIONS 1. Normal myocardial perfusion imaging with no evidence of ischemia 2. LV systolic function is normal Jose J Rivera MD (Electronically Signed) Final Date: 21 November 2023 18:27 S
[2023-11-21 08:17] VITALS: BMI 24.4
[2023-11-21 09:53] VITALS: BP 135/87; PULSE 96
== END 2023-11-21 08:01 | disposition home or self-care (01) ==
PROVIDERS: PCP Family Medicine; Visit Provider Nurse Practitioner Family
DX: I50.9 Heart failure, unspecified (principal); R06.02 Shortness of breath; R07.9 Chest pain, unspecified
CPT/HCPCS: 36415; 78452; 93017; 96374; A9500

== ENCOUNTER → 2024-04-04 14:38 | Outpatient (BNVA) | payer MEDICARE, SELFPAY | PROVIDERS: PCP Family Medicine; Visit Provider Internal Medicine Cardiovascular Disease | DX: I50.9 Heart failure, unspecified (principal); E66.9 Obesity, unspecified; Z68.25 Body mass index [BMI] 25.0-25.9, adult; J45.909 Unspecified asthma, uncomplicated; I47.19 Other supraventricular tachycardia | CPT/HCPCS: 99214 ==

== ENCOUNTER → 2024-05-07 10:16 | Outpatient (BNVA) | payer MEDICARE, SELFPAY | PROVIDERS: PCP Family Medicine; Visit Provider Nurse Practitioner Family | DX: D18.01 Hemangioma of skin and subcutaneous tissue (principal); L82.1 Other seborrheic keratosis; Z08 Encounter for follow-up examination after completed treatment for malignant neoplasm; Z85.828 Personal history of other malignant neoplasm of skin; L57.0 Actinic keratosis | CPT/HCPCS: 17000; 99213 ==

== ENCOUNTER → 2024-05-09 10:00 | Outpatient (BNVA) | payer MEDICARE, SELFPAY | PROVIDERS: PCP Family Medicine; Visit Provider Internal Medicine Cardiovascular Disease | DX: I50.9 Heart failure, unspecified (principal); R00.2 Palpitations | CPT/HCPCS: 36415; 80048; 83880; 85025; 99214 ==

== ENCOUNTER → 2024-10-09 13:54 | Outpatient (BNVA) | payer MEDICARE, SELFPAY | PROVIDERS: PCP Family Medicine; Visit Provider Internal Medicine Cardiovascular Disease | DX: I11.0 Hypertensive heart disease with heart failure (principal); I50.30 Unspecified diastolic (congestive) heart failure; I87.2 Venous insufficiency (chronic) (peripheral) | CPT/HCPCS: 99214 ==